=== PATIENT | female | born 1990 | race Caucasian/White ===

== ENCOUNTER → 2021-04-20 | Outpatient (CLI) | payer OTHER ==
[2021-04-21 07:10] LABS: RHEUMATOID ARTHRITIS FACTOR <10.0 IU/mL (0.0-13.9)
== END ==
LOC: LAB 09:52
PROVIDERS: Nurse Practitioner Family
DX: M79.642 Pain in left hand (principal); M79.641 Pain in right hand; M79.10 Myalgia, unspecified site; M54.2 Cervicalgia; G89.29 Other chronic pain; D89.9 Disorder involving the immune mechanism, unspecified; M25.50 Pain in unspecified joint; R76.8 Other specified abnormal immunological findings in serum
CPT/HCPCS: 36415; 72040; 73130; 82550; 82728; 83520; 85652; 86140; 86200; 86431

== ENCOUNTER → 2022-02-15 | Outpatient (CLI) | payer BC | LOC: RAD 12:49 | DX: R14.0 Abdominal distension (gaseous) (principal) | CPT/HCPCS: 74018 ==